=== PATIENT | female | born 2000 ===

== ENCOUNTER 2025-07-03 18:19 | Emergency (ER) | payer SELFPAY ==
--- NOTE | ~2025-07-03 | US_ITS ---
CLINICAL HISTORY: pelvic pain US pelvis transabdominal and transvaginal with Doppler Comparison: None provided Findings: Transabdominal scanning performed for overall anatomy. Transvaginal scanning performed for additional detail. Anteverted uterus is 7.9 cm length. Normal myometrium. Unremarkable endometrium 6 mm thickness. Physiologic amount of fluid within the endocervical canal. Right ovary 3.3 x 2.4 x 2.5 cm. Simple follicles. Left ovary 4.7 x 2.5 x 2.8 cm. Simple follicles. Normal color Doppler with arterial/venous spectral tracing of both ovaries. No free fluid. IMPRESSION: 1. No evidence of ovarian torsion. 2. Unremarkable uterus. This document has been electronically signed by: Mohinder Fletcher MD on 07/03/2025 21:21:29
[2025-07-03 18:26] VITALS: BP 128/79; PULSE 83; RESP 16; TEMP 36.7; O2SAT 100; BMI 24.5
[2025-07-03 19:36] LABS: MANUAL DIFF FLAG NO
[2025-07-03 19:37] LABS: Hematocrit 40.3 % (37.0-47.0); Hemoglobin 14.3 g/dl (12.0-16.0); Imm Gran Abs Auto 0.05 X10*3/uL (0.00-0.03); Imm Gran Pct Auto 0.6 % (0.0-0.4); Lymphocytes Absolute Auto 2.3 X10*3/uL (1.2-4.9); Mean Corpuscular HGB Conc 35.5 g/dl (31.0-35.0); Mean Corpuscular Hemoglobin 28.4 pg (27.0-33.0); Mean Corpuscular Volume 80.1 fL (80.0-98.0); NRBC Abs Auto 0.000 X10*3/uL (0.0-0.012); NRBC Pct Auto 0.0 /100WBC (0.0-0.2); Platelet Count 292 X10*3/uL (160-400); Red Blood Count 5.03 X10*6/uL (4.20-5.50); White Blood Count 8.4 X10*3/uL (4.8-10.8)
--- NOTE | 2025-07-03 19:41 | ED.ABDPAIN ---
HPI - Abdominal Pain General Chief Complaint: Abdominal Pain Stated Complaint: abd/back pain, Related Data Allergies Allergy/AdvReac Type Severity Reaction Status Date / Time No Known Allergies Allergy Verified 07/03/25 18:34 [facility] Social History Social History Do you have a plan to hurt others: No Plan Physical Exam ED Vital Signs: Vital Signs - 24 hr 07/03/25 18:26 Temperature 98.1 F Pulse Rate 83 Respiratory Rate 16 Blood Pressure 128/79 Pulse Oximetry 100 Oxygen Delivery Method Room Air BMI result Body Mass Index 24.5 Course Course Course Narrative: This is an RME: Additional HPI, ROS, PE not included below will be deferred to primary provider. RME assessment and note performed by: Megan Wong PA-C This is a 24-year-old female, G 1 P0, who presents emergency department with complaints of abdominal pain and back pain for the last 1-2 weeks. She states that she took a test yesterday and today which were both positive. She states that over the summer she took multiple plan bees, and states that she had a regular periods afterwards. Her last spotting episode was sometime in April. No vaginal discharge or bleeding. Urinating without difficulty. No complications with her prior pregnancies. Plan: Labs, UA, plus or minus ultrasound. Medical Decision Making Lab Data 07/03/25 19:32 07/03/25 19:32 Labs: Lab Results 07/03/25 Range/Units 19:32 WBC 8.4 (4.8-10.8) X10*3/uL RBC 5.03 (4.20-5.50) X10*6/uL Hgb 14.3 (12.0-16.0) g/dl Hct 40.3 (37.0-47.0) % MCV 80.1 (80.0-98.0) fL MCH 28.4 (27.0-33.0) pg MCHC 35.5 H (31.0-35.0) g/dl RDW 12.8 (11.0-16.0) % Plt Count 292 (160-400) X10*3/uL MPV 10.4 (9.4-12.3) fL Immature Gran % (Auto) 0.6 H (0.0-0.4) % Neut % (Auto) 62.4 (45-73) % Lymph % (Auto) 26.7 (20-40) % [place] % (Auto) 7.6 (2-11) % Eos % (Auto) 2.1 (0-4) % Baso % (Auto) 0.6 (0-2) % Lymph # (Auto) 2.3 (1.2-4.9) X10*3/uL [place] # (Auto) 0.6 (0.1-1.2) X10*3/uL Eos # (Auto) 0.2 (0.0-0.4) X10*3/uL Baso # (Auto) 0.1 (0.0-0.2) X10*3/uL Abs Immat Gran (auto) 0.05 H (0.00-0.03) X10*3/uL Absolute Neuts (auto) 5.3 (2.0-8.3) x10*3/uL Absolute Nucleated RBC 0.000 (0.0-0.012) X10*3/uL Nucleated RBC % (auto) 0.0 (0.0-0.2) /100WBC Discharge Plan Discharge Print Language: Icelandic
[2025-07-03 19:57] LABS: Alanine Aminotransferase 37 U/L (0-31); Albumin Level 5.0 g/dL (3.5-5.0); Alkaline Phosphatase 81 U/L (39-117); Anion Gap 12 (12-20); Aspartate Amino Transferase 37 U/L (5-31); Blood Urea Nitrogen 18 mg/dL (9-16); Calcium 9.9 mg/dL (8.4-10.2); Carbon Dioxide 24 mmol/L (22-29); Chloride 108 mmol/L (96-108); Creatinine Clr Calc Pharmacy 85.9; Estimated Glomerular Filt Rate > 60; Magnesium 2.2 mg/dL (1.6-2.6); Potassium 3.8 mmol/L (3.3-5.1); Sodium 140 mmol/L (135-145); Total Protein 8.1 g/dL (6.5-8.0)
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
--- NOTE | 2025-07-03 21:52 | ED.GENADULT ---
[facility] - General Adult General Chief complaint: Abdominal Pain Stated complaint: abd/back pain, Time Seen by Provider: 07/03/25 21:30 Source: patient Mode of arrival: ambulatory Limitations: no limitations History of Present Illness ED Provider: Dr. Lance [facility] narrative: This is a 24-year-old female presented hospital today for evaluation of abdominal pain in the epigastric and left lower quadrant and right lower quadrant. Patient states she was tested positive for yesterday via [id number] test. Patient's has not had her menstrual cycle in 2 months. She is . She endorse some nausea. Related Data Previous Rx's ?Medication ?Instructions ?Recorded ondansetron 4 mg disintegrating 4 mg PO Q8H PRN nausea and 07/03/25 tablet vomiting #14 tabs Allergies Allergy/AdvReac Type Severity Reaction Status Date / Time No Known Allergies Allergy Verified 07/03/25 18:34 Review of Systems Review of Systems: Pertinent review of systems as mentioned in HPI. All other system otherwise negative. [facility] Past Medical History [facility] Narrative: Medical history as mentioned in [facility] Social History Social History Advance Directives: No Advance Directives Information Provided: Yes Do you have a plan to hurt others: No Plan Physical Exam ED Exam Exam: General: Pleasant, no distress, interacting appropriately Head: Normacephalic, atraumatic ENT: oral mucosa moist, neck supple, no tracheal deviation Cardiovascular: regular rate, regular rhythm, no murmurs, rubbing, gallops Respiratory: CTAB, no wheeze, rales, rhonchi Gastrointestinal: Soft, non distended, non tender, non guarding Neurological: Awake and alert, no facial droop noted Skin: Warm and dry Psychiatric: Appropriate mood and thoughts Vital Signs: Vital Signs - 24 hr 07/03/25 18:26 Temperature 98.1 F Pulse Rate 83 Respiratory Rate 16 Blood Pressure 128/79 Pulse Oximetry 100 Oxygen Delivery Method Room Air BMI result Body Mass Index 24.5 Medical Decision Making Medical Decision Making [facility] Narrative: 24-year-old female presented hospital today for concerns of possible and abdominal pain. CBC is unremarkable, CMP is unremarkable. Ultrasound was normal. Patient's beta hCG is negative. I do not think patient is . Patient appears to be well. Did not appear to be in acute distress. Patient will be discharged. Differential Diagnosis Differential Diagnoses: The differential diagnosis associated with the presentation includes Abdominal pain, ectopic , Lab Data MDM Lab Attestation statement: I reviewed the patient's lab results. 07/03/25 19:32 07/03/25 19:32 Labs: Lab Results 07/03/25 Range/Units 19:32 WBC 8.4 (4.8-10.8) X10*3/uL RBC 5.03 (4.20-5.50) X10*6/uL Hgb 14.3 (12.0-16.0) g/dl Hct 40.3 (37.0-47.0) % MCV 80.1 (80.0-98.0) fL MCH 28.4 (27.0-33.0) pg MCHC 35.5 H (31.0-35.0) g/dl RDW 12.8 (11.0-16.0) % Plt Count 292 (160-400) X10*3/uL MPV 10.4 (9.4-12.3) fL Immature Gran % (Auto) 0.6 H (0.0-0.4) % Neut % (Auto) 62.4 (45-73) % Lymph % (Auto) 26.7 (20-40) % [place] % (Auto) 7.6 (2-11) % Eos % (Auto) 2.1 (0-4) % Baso % (Auto) 0.6 (0-2) % Lymph # (Auto) 2.3 (1.2-4.9) X10*3/uL [place] # (Auto) 0.6 (0.1-1.2) X10*3/uL Eos # (Auto) 0.2 (0.0-0.4) X10*3/uL Baso # (Auto) 0.1 (0.0-0.2) X10*3/uL Abs Immat Gran (auto) 0.05 H (0.00-0.03) X10*3/uL Absolute Neuts (auto) 5.3 (2.0-8.3) x10*3/uL Absolute Nucleated RBC 0.000 (0.0-0.012) X10*3/uL Nucleated RBC % (auto) 0.0 (0.0-0.2) /100WBC Sodium 140 (135-145) mmol/L Potassium 3.8 (3.3-5.1) mmol/L Chloride 108 (96-108) mmol/L Carbon Dioxide 24 (22-29) mmol/L Anion Gap 12 (12-20) BUN 18 H (9-16) mg/dL Creatinine 0.90 (0.5-1.4) mg/dL Estim Creat Clear Calc 85.9 Estimated GFR > 60 Random Glucose 97 (60-115) mg/dL Calcium 9.9 (8.4-10.2) mg/dL Magnesium 2.2 (1.6-2.6) mg/dL Total Bilirubin 0.6 (0.0-1.0) mg/dL Direct Bilirubin 0.2 (0.0-0.5) mg/dL AST 37 H (5-31) U/L ALT 37 H (0-31) U/L Alkaline Phosphatase 81 (39-117) U/L Total Protein 8.1 H (6.5-8.0) g/dL Albumin 5.0 (3.5-5.0) g/dL Beta HCG, Quant < 2 mIU/mL Independent Interpretation I performed an independent interpretation of an: Ultrasound Radiology Impression Discussion of test interpretation with radiology: I have reviewed the radiologist's reading. 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
[2025-07-03 22:36] VITALS: BP 128/79; PULSE 83; RESP 16; TEMP 36.7; O2SAT 100
== END 2025-07-03 22:37 | disposition home or self-care (01) ==
PROVIDERS: Physician Assistant Medical; Emergency Provider Student in an Organized Health Care Education/Training Program
DX: R10.20 Pelvic and perineal pain unspecified side (principal); R10.32 Left lower quadrant pain; R10.31 Right lower quadrant pain
CPT/HCPCS: 36415; 76830; 76856; 80048; 80076; 83735; 84702; 85025; 93975; 99282; 99284

== ENCOUNTER → 2025-07-03 20:04 | Outpatient (BNV) | payer SELFPAY | PROVIDERS: Emergency Provider Student in an Organized Health Care Education/Training Program; Visit Provider Radiology Diagnostic Radiology | DX: R10.20 Pelvic and perineal pain unspecified side (principal) | CPT/HCPCS: 93975 ==